=== PATIENT | female | born 1980 | race African-American/Black ===

== ENCOUNTER 2018-12-22 12:57 | Emergency (ER) | payer MEDICAID ==
[~2018-12-22] VITALS: Ht 157.5 cm; Wt 74.0 kg
[2018-12-22 17:50] VITALS: BP 161/104
== END 2018-12-22 17:55 | disposition home or self-care (01) ==
LOC: ER 12:57
DX: T23.211A Burn of second degree of right thumb (nail), initial encounter (principal); F17.200 Nicotine dependence, unspecified, uncomplicated; X08.8XXA Exposure to other specified smoke, fire and flames, initial encounter; Y93.89 Activity, other specified; Y92.89 Other specified places as the place of occurrence of the external cause
CPT/HCPCS: 99283